=== PATIENT | female | born 1970 | race Caucasian/White ===

== ENCOUNTER 2022-04-09 13:11 | Emergency (ER) | payer SELFPAY ==
--- NOTE | 2022-04-09 13:20 | NUR ---
PT CALLED IN LOBBY, NO ANSWER
--- NOTE | 2022-04-09 13:45 | NUR ---
CALLED IN LOBBY, NO ANSWER
--- NOTE | 2022-04-09 13:56 | NUR ---
Pt did not answer in lobby or surrounding areas
--- NOTE | 2022-04-09 13:57 | NUR ---
PATIENT LEFT WITHOUT BEING SEEN BY DR. Webb. NO FURTHER CARE PROVIDED FOR PATIENT.
== END 2022-04-09 13:20 | disposition left against medical advice (07) ==
LOC: MED 13:11
DX: S61.419A Laceration without foreign body of unspecified hand, initial encounter (principal); Z53.21 Procedure and treatment not carried out due to patient leaving prior to being seen by health care provider; X58.XXXA Exposure to other specified factors, initial encounter; Y93.89 Activity, other specified; Y92.89 Other specified places as the place of occurrence of the external cause; Y99.8 Other external cause status